=== PATIENT | female | born 1995 | race American Indian/Alaskan Native ===

== ENCOUNTER 2019-04-27 02:09 | Emergency (ER) | payer OTHER ==
[2019-04-27] MEDS ORDERED: NACL 0.9% 1000 ML 1,000 ML IV ONE (03:38)
--- NOTE | 2019-04-27 04:49 | Cat Scan Report ---
CT head/brain wo con INDICATION: syncope, blurred vision. TECHNIQUE: All CT scans at this location are performed using the following dose modulation technique: Automated exposure control. CONTRAST: None. COMPARISON: None available. FINDINGS: The ventricular system is appropriate in size and configuration without midline shift. Nega tive for mass, stroke or hemorrhage. Imaged portions of the paranasal sinuses are clear. IMPRESSION: Negative CT brain without contrast. Signer Name: Lawrence Lorenzana MD Signed: 04/27/2019 4:44 AM Workstation Name: [id number]
[2019-04-27 05:01] LABS: Basophils # (Auto) 0.1 K/mm3 (0.0-0.1); Basophils % (Auto) 0.5 % (0.0-1.8); Eosinophils % (Auto) 0.2 % (0.0-4.3); Hematocrit 37.5 % (30.3-42.9); Hemoglobin 12.5 gm/dl (10.1-14.3); Lymphocytes # (Auto) 1.9 K/mm3 (1.2-5.4); Lymphocytes % (Auto) 16.4 % (13.4-35.0); Mean Corpuscular HGB Conc 33 % (30-34); Mean Corpuscular Volume 83 fl (79-97); Monocytes # (Auto) 0.6 K/mm3 (0.0-0.8); Monocytes % (Auto) 4.8 % (0.0-7.3); Red Cell Distribution Width 14.1 % (13.2-15.2)
[2019-04-27 05:11] LABS: Platelet Count 263 K/mm3 (140-440)
[2019-04-27 05:22] LABS: BUN/Creatinine Ratio 15; Blood Urea Nitrogen 9 mg/dL (7-17); Calcium 9.6 mg/dL (8.4-10.2); Hemolysis Index 5
--- NOTE | 2019-04-27 06:03 | XRay Report ---
CHEST 1 VIEW INDICATION: syncope. COMPARISON: None. FINDINGS: Support devices: None. Heart: Within normal limits. Lungs/Pleura: No acute air space or interstitial disease. Additional findings: None. IMPRESSION: No acute abnormality. Signer Name: Lawrence Lorenzana MD Signed: 04/27/2019 5:58 AM Workstation Name: [id number]
[2019-04-27 06:10] LABS: Bacteria,Urine 1+ /HPF (Negative); Bilirubin,Urine NEG (Negative); Blood,Urine NEG (Negative); Color,Urine Straw (Yellow); Protein,Urine <15 mg/dL mg/dL (Negative); Urobilinogen,Urine < 2.0 mg/dL (<2.0)
--- NOTE | 2019-04-27 06:27 | Emergency Department Report ---
ED Syncope HPI - General Chief Complaint: Syncope Stated Complaint: PASSED OUT W/BLURRED VISION Time Seen by Provider: 04/27/19 03:02 - History of Present Illness Initial Comments: 23 yo F presents to ED following syncopal episode at home. Pt states she was laying in bed then got up to go the bathroom. When she reached the room door, she passed out. Reports feeling lightheaded. Denies chest pain, SOB, fever, abd pain, possible . Pt reports that the only thing she had to eat on yesterday was a bowl of cereal and some fruit. Pt also reports she recently got contact lenses 2 weeks ago. States after taking them out, she is able to see up close, but when she looks far off, her vision seemed more blurred than usual. However, when she wears her contacts she is able to see well. Pt denies one eye being worse than the other. Denies any current headache. Timing/Prior Episodes: single episode today Precipitating Factors: Positive: lightheadedness Context: standing Loss of Consciousness: brief (seconds) Current Symptoms: blurred vision, lightheadedness. denies: chest pain, headache - Related Data Allergies/Adverse Reactions: Allergies Penicillins Allergy (Verified 04/27/19 02:22) Unknown ED Review of Systems ROS: Stated complaint: PASSED OUT W/BLURRED VISION Other details as noted in HPI Comment: All other systems reviewed and negative Constitutional: denies: chills, fever Eyes: vision change Respiratory: denies: shortness of breath Cardiovascular: denies: chest pain Gastrointestinal: denies: abdominal pain, nausea, vomiting, diarrhea Neurological: denies: headache, weakness, numbness, paresthesias ED Past Medical Hx - Past Medical History Previous Medical History?: No - Surgical History Past Surgical History?: No - Social History Smoking Status: Current Every Day Smoker Substance Use Type: None ED Physical Exam - General Limitations: No Limitations General appearance: alert, in no apparent distress - Head Head exam: Present: atraumatic, normocephalic - Eye Eye exam: Present: normal appearance, PERRL, EOMI, other (no gross visual deficit on exam) - ENT ENT exam: Present: mucous membranes moist - Neck Neck exam: Present: normal inspection - Respiratory Respiratory exam: Present: normal lung sounds bilaterally. Absent: respiratory distress - Cardiovascular Cardiovascular Exam: Present: regular rate, normal rhythm - GI/Abdominal GI/Abdominal exam: Present: soft. Absent: distended, tenderness - Extremities Exam Extremities exam: Present: normal inspection - Neurological Exam Neurological exam: Present: alert, oriented X3, CN II-XII intact. Absent: motor sensory deficit - Psychiatric Psychiatric exam: Present: normal affect, normal mood - Skin Skin exam: Present: warm, dry, intact, normal color ED Course Vital Signs 04/27/19 04/27/19 04/27/19 02:23 04:12 06:00 Temperature 98.7 F 98.4 F Pulse Rate 115 H 80 Respiratory 20 20 20 Rate Blood Pressure 111/73 Blood Pressure 116/80 [Left] O2 Sat by Pulse 100 99 99 Oximetry ED Medical Decision Making - Lab Data Result diagrams: 04/27/19 04:00 04/27/19 04:00 - EKG Data -: EKG Interpreted by Me EKG shows normal: sinus rhythm, axis, intervals, QRS complexes, ST-T waves Rate: normal - EKG Data Interpretation: no acute changes - Radiology Data Radiology results: report reviewed, image reviewed - Medical Decision Making 23 yo F s/p syncopal episode. Labs unremarkable. test negative. CT Head normal, no neuro deficits on exam. EKG unremarkable. Likely that pt had orthostatic syncopal episode as she passed out after going from supine to standing position. IV fluids given. Pt feeling much better. Will d/c home. Return precautions given. Outpt f/u advised - Differential Diagnosis orthostatic hypotension, , arrythmia, dehydration Critical care attestation.: If time is entered above; I have spent that time in minutes in the direct care of this critically ill patient, excluding procedure time. ED Disposition Clinical Impression: Syncope, Near-sightedness Disposition: DC-01 TO HOME OR SELFCARE Is pt being admited?: No Condition: Stable Instructions: Syncope (ED) Referrals: SANJU DONALDSON MD [Primary Care Provider] - 3-5 Days JACK JONES MD [Staff Physician] - 3-5 Days PRIMARY CARE, [Referring] - 3-5 Days Forms: Accompanied Note, Work/School Release Form(ED) Time of Disposition: 06:26
[2019-04-27 06:45] VITALS: BP 116/80
== END 2019-04-27 06:45 | disposition home or self-care (01) ==
LOC: ED 02:09
DX: R55 Syncope and collapse (principal); F17.200 Nicotine dependence, unspecified, uncomplicated; Z88.0 Allergy status to penicillin
CPT/HCPCS: 36415; 70450; 71045; 80048; 81001; 84484; 84703; 85025; 93005; 93010; 96360; 96361; 99284; J7030